=== PATIENT | female | born 2000 | race Two or more races ===

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

== ENCOUNTER 2022-05-22 19:54 | Emergency (ER) | payer MEDICAID ==
[~2022-05-22] VITALS: Ht 172.7 cm; Wt 126.0 kg
[2022-05-22 19:59] VITALS: BP 121/77
[2022-05-22 20:53] LABS: Basophils # (auto) 0 10 ^3/uL (0-0.2); Basophils % (auto) 0.4 % (0.0-2.0); Eosinophils # (auto) 0.1 10 ^3/uL (0-0.8); Eosinophils % (auto) 0.6 % (0.0-7.0); Hematocrit 42.4 % (36.0-46.0); Hemoglobin 14.3 g/dL (12.2-16.2); Lymphocytes # (auto) 1.6 10 ^3/uL (0.4-5.4); Lymphocytes % (auto) 17.8 % (10.0-50.0); Mean Corpuscular Hemoglobin 31.8 pg (28.0-32.0); Mean Corpuscular Hgb Conc. 33.7 g/dL (32.0-36.0); Mean Corpuscular Volume 94.3 fL (80.0-100.0); Monocytes # (auto) 0.8 10 ^3/uL (0-1.3); Monocytes % (auto) 8.9 % (0.0-12.0); Neutrophils # (auto) 6.5 10 ^3/uL (1.6-8.6); Neutrophils % (auto) 72.3 % (37.0-80.0); Nucleated Red Blood Cells % 0.1 %; White Blood Cell 8.9 10^3/uL (4.4-10.8)
[2022-05-22 21:03] LABS: Albumin 3.5 g/dL (3.4-5.0); BUN/Creatinine Ratio 14.3; Calcium 8.8 mg/dL (8.5-10.1); Magnesium 1.8 mg/dL (1.6-2.6); Potassium 3.8 mmol/L (3.5-5.1)
[2022-05-22 21:05] LABS: Bilirubin, Total 0.6 mg/dL (0.2-1.0); Total Protein 7.3 g/dL (6.4-8.2)
[2022-05-22 21:44] LABS: Urine Bacteria FEW /hpf (None Seen); Urine Blood TRACE /uL (Negative); Urine Mucus FEW (None Seen); Urine Specific Gravity 1.019 (1.001-1.035); Urine WBC 6 /hpf (0 - 5)
[2022-05-23] MEDS ORDERED: cefTRIAXone SOD 1,000 MG VL IM ONE (05:30)
[2022-05-23] MEDS ORDERED: NITR-87 PO (05:32)
== END 2022-05-23 09:28 | disposition left against medical advice (07) ==
LOC: ER 19:54
DX: R07.89 Other chest pain (principal); N39.0 Urinary tract infection, site not specified; Z32.02 Encounter for pregnancy test, result negative; Z79.899 Other long term (current) drug therapy
CPT/HCPCS: 36415; 71046; 80053; 81001; 81025; 83735; 84484; 85025; 93005